=== PATIENT | female | born 1990 | race Two or more races ===

== ENCOUNTER 2018-03-27 14:35 | Emergency (ER) | payer SELFPAY ==
[~2018-03-27] VITALS: Ht 162.6 cm; Wt 53.5 kg
[2018-03-27 14:51] VITALS: BP 110/83
--- NOTE | 2018-03-27 17:11 | NUR ---
PT REC'D A COPY OF THE IMAGING DISK AND FINDINGS.
== END 2018-03-27 17:13 | disposition home or self-care (01) ==
LOC: ER 14:35
DX: J20.9 Acute bronchitis, unspecified (principal); Z60.2 Problems related to living alone
CPT/HCPCS: 71046; A4606; Z7610

== ENCOUNTER 2018-04-11 00:41 | Emergency (ER) | payer SELFPAY | END 2018-04-14 | disposition home or self-care (01) | LOC: ER 04-14 10:45 | DX: Z53.21 Procedure and treatment not carried out due to patient leaving prior to being seen by health care provider (principal) ==